=== PATIENT | female | born 1995 | race Two or more races ===

== ENCOUNTER 2016-12-08 19:56 | Emergency (ER) | payer MEDICAID ==
[~2016-12-08] VITALS: Ht 154.9 cm; Wt 71.7 kg
[2016-12-08 21:21] VITALS: BP 133/95
[2016-12-08] MEDS ORDERED: EPINEPHrine HCL 1 MG/1 ML AMP SC ONE (22:15)
[2016-12-08] MEDS ORDERED: methylPREDNISolone SOD SUCC 125 MG/2 ML VL IM ONE (22:15)
== END 2016-12-08 22:32 | disposition home or self-care (01) ==
LOC: ER 19:59
DX: T78.40XA Allergy, unspecified, initial encounter (principal); F12.10 Cannabis abuse, uncomplicated
CPT/HCPCS: 96372; 99284; J0171; J2930

== ENCOUNTER 2017-05-03 23:55 | Emergency (ER) | payer MEDICAID ==
[~2017-05-03] VITALS: Ht 154.9 cm; Wt 65.8 kg
[2017-05-04 00:51] VITALS: BP 108/67
== END 2017-05-04 05:22 | disposition left against medical advice (07) ==
LOC: ER 23:55
DX: R21 Rash and other nonspecific skin eruption (principal); Z53.21 Procedure and treatment not carried out due to patient leaving prior to being seen by health care provider

== ENCOUNTER 2017-05-04 15:03 | Emergency (ER) | payer MEDICAID, OTHER ==
[~2017-05-04] VITALS: Ht 154.9 cm; Wt 65.8 kg
[2017-05-04 15:13] VITALS: BP 131/64
== END 2017-05-04 17:07 | disposition home or self-care (01) ==
LOC: ER 15:08
DX: B86 Scabies (principal); F12.10 Cannabis abuse, uncomplicated

== ENCOUNTER 2019-12-24 17:21 | Emergency (ER) | payer OTHER ==
[~2019-12-24] VITALS: Ht 154.9 cm; Wt 76.7 kg
[2019-12-24 19:14] VITALS: BP 118/68
[2019-12-24 19:23] LABS: Urine WBC None Seen /hpf (0 - 5)
[2019-12-24 19:39] LABS: Basophils # (auto) 0 uL; Basophils % (auto) 0.4 % (0.0-2.0); Eosinophils # (auto) 0.2 uL; Eosinophils % (auto) 1.6 % (0.0-7.0); Hematocrit 42.8 % (36.0-46.0); Hemoglobin 14.6 g/dL (12.2-16.2); Lymphocytes # (auto) 3.1 uL; Mean Corpuscular Hemoglobin 31.4 pg (28.0-32.0); Mean Corpuscular Hgb Conc. 34.1 g/dL (32.0-36.0); Mean Corpuscular Volume 92.1 fL (80.0-100.0); Monocytes # (auto) 0.5 uL; Nucleated Red Blood Cells % 0.1 %; Platelet Count (auto) 292 10^3/uL (140-450); Red Blood Cells 4.65 10^6/uL (4.0-5.20); Red Cell Distribution Width 11.9 % (11.8-14.3); White Blood Cell 9.8 10^3/uL (4.4-10.8)
[2019-12-24 19:48] LABS: Urine Bacteria NONE SEEN /hpf (None Seen); Urine Blood Negative /uL (Negative); Urine Specific Gravity 1.004 (1.001-1.035)
[2019-12-24 20:57] LABS: Albumin 4.2 g/dL (3.4-5.0); Calcium 8.7 mg/dL (8.5-10.1); Potassium 3.6 mmol/L (3.5-5.1)
[2019-12-24 21:02] LABS: BUN/Creatinine Ratio 17.1; Bilirubin, Total 0.2 mg/dL (0.2-1.0); Total Protein 7.9 g/dL (6.4-8.2)
== END 2019-12-24 22:11 | disposition home or self-care (01) ==
LOC: ER 17:21
DX: N93.8 Other specified abnormal uterine and vaginal bleeding (principal); M54.9 Dorsalgia, unspecified
CPT/HCPCS: 36415; 76856; 80053; 81001; 84702; 85025

== ENCOUNTER 2021-03-09 10:10 | Observation (INO) | payer MEDICAID ==
[~2021-03-09] VITALS: Ht 154.9 cm; Wt 79.4 kg
[2021-03-09] MEDS ORDERED: LACTATED RINGER'S 1,000 ML IV ONE (11:30)
[2021-03-09] MEDS: TERBUTALINE SULFATE 1 MG/ML 1ML VIAL SC SCH ×2 (11:43→12:10)
[2021-03-09] MEDS ORDERED: PREN-96 PO (12:41)
[2021-03-09] MEDS ORDERED: ALBU0.084 PO (12:42)
[2021-03-09] MEDS ORDERED: NIF10C PO (12:57)
== END 2021-03-09 13:17 | disposition home or self-care (01) ==
LOC: LDRP 10:10
PROVIDERS: ADMIT Specialist; ATTEND Specialist
DX: O26.892 Other specified pregnancy related conditions, second trimester (principal); R10.31 Right lower quadrant pain; Z3A.25 25 weeks gestation of pregnancy
CPT/HCPCS: 59025; 81002; 87070; 94760; 96360; 96361; 96372; G0378; J3105

== ENCOUNTER 2021-03-26 07:53 | Observation (INO) | payer MEDICAID ==
[~2021-03-26] VITALS: Ht 154.9 cm; Wt 81.6 kg
[~2021-03-26 07:53] MED LIST: ALBU0.084 PO; NIF10C PO; PREN-96 PO
== END 2021-03-26 09:06 | disposition home or self-care (01) ==
LOC: LDRP 07:53
PROVIDERS: ADMIT Specialist; ATTEND Specialist
DX: O26.892 Other specified pregnancy related conditions, second trimester (principal); M79.604 Pain in right leg; Z3A.27 27 weeks gestation of pregnancy
CPT/HCPCS: 59025; 81002; G0378

== ENCOUNTER 2021-03-26 09:11 | Emergency (ER) | payer MEDICAID ==
[~2021-03-26] VITALS: Ht 154.9 cm; Wt 81.6 kg
[2021-03-26] MEDS ORDERED: ACETAMINOPHEN 500 MG TAB PO ONE (10:00)
[2021-03-26 11:07] VITALS: BP 118/70
== END 2021-03-26 11:36 | disposition home or self-care (01) ==
LOC: ER 09:11
DX: O26.892 Other specified pregnancy related conditions, second trimester (principal); M79.661 Pain in right lower leg; Z79.899 Other long term (current) drug therapy; Z3A.27 27 weeks gestation of pregnancy
CPT/HCPCS: 93971

== ENCOUNTER 2021-04-02 12:00 | Observation (INO) | payer MEDICAID | END 2021-04-02 13:10 | disposition home or self-care (01) | LOC: LDRP 12:00 | PROVIDERS: ADMIT Obstetrics & Gynecology; ATTEND Obstetrics & Gynecology | DX: O60.03 Preterm labor without delivery, third trimester (principal); Z3A.28 28 weeks gestation of pregnancy | CPT/HCPCS: 59025; 81002; G0378 ==

== ENCOUNTER 2021-04-09 11:45 | Observation (INO) | payer MEDICAID | END 2021-04-09 13:15 | disposition home or self-care (01) | LOC: LDRP 12:34 | PROVIDERS: ADMIT Specialist; ATTEND Specialist | DX: O60.03 Preterm labor without delivery, third trimester (principal); Z3A.29 29 weeks gestation of pregnancy | CPT/HCPCS: 59025; 81002; G0378 ==

== ENCOUNTER 2021-04-10 13:05 | Emergency (ER) | payer MEDICAID ==
[~2021-04-10] VITALS: Ht 154.9 cm; Wt 85.3 kg
[2021-04-10 13:10] VITALS: BP 127/80
[2021-04-10] MEDS ORDERED: IPRATROPIUM BROM 0.5 MG/2.5ML INH SOL NEB ONE (15:30)
[2021-04-10] MEDS ORDERED: cefTRIAXone SOD 1,000 MG VL IM ONE (15:30)
[2021-04-10] MEDS ORDERED: methylPREDNISolone SOD SUCC 125 MG/2 ML VL IM ONE ×2 (15:30→15:45)
[2021-04-10] MEDS ORDERED: ALBUTEROL SULF 2.5 MG/0.5ML(0.5%) NEB SOLN NEB ONE (15:30)
== END 2021-04-10 16:20 | disposition home or self-care (01) ==
LOC: ER 13:05
DX: O99.513 Diseases of the respiratory system complicating pregnancy, third trimester (principal); J45.909 Unspecified asthma, uncomplicated; J02.9 Acute pharyngitis, unspecified; F41.9 Anxiety disorder, unspecified; Z3A.30 30 weeks gestation of pregnancy
CPT/HCPCS: 94640; 96372; 99283; J0696; J2930; J7644

== ENCOUNTER 2021-04-16 09:24 | Observation (INO) | payer MEDICAID | END 2021-04-16 14:52 | disposition home or self-care (01) | LOC: LDRP 13:00 | PROVIDERS: ADMIT Obstetrics & Gynecology; ATTEND Obstetrics & Gynecology | DX: O60.03 Preterm labor without delivery, third trimester (principal); Z3A.30 30 weeks gestation of pregnancy | CPT/HCPCS: 59025; 81002; 94760; G0378 ==

== ENCOUNTER 2021-04-23 16:45 | Observation (INO) | payer MEDICAID | END 2021-04-23 17:30 | disposition home or self-care (01) | LOC: LDRP 16:45 | PROVIDERS: ADMIT Specialist; ATTEND Specialist | DX: O60.03 Preterm labor without delivery, third trimester (principal); O99.323 Drug use complicating pregnancy, third trimester; F12.90 Cannabis use, unspecified, uncomplicated; Z3A.31 31 weeks gestation of pregnancy | CPT/HCPCS: 59025; 81002; 94760; G0378 ==

== ENCOUNTER 2021-05-03 10:35 | Observation (INO) | payer MEDICAID | END 2021-05-03 11:20 | disposition home or self-care (01) | LOC: LDRP 10:35 | PROVIDERS: ADMIT Specialist; ATTEND Specialist | DX: O60.03 Preterm labor without delivery, third trimester (principal); O99.323 Drug use complicating pregnancy, third trimester; F12.90 Cannabis use, unspecified, uncomplicated; Z3A.33 33 weeks gestation of pregnancy | CPT/HCPCS: 59025; 81002; G0378 ==

== ENCOUNTER 2021-05-07 14:58 | Observation (INO) | payer MEDICAID ==
[2021-05-07] MEDS ORDERED: LACTATED RINGER'S 1,000 ML IV ONE (15:45)
== END 2021-05-07 17:03 | disposition home or self-care (01) ==
LOC: LDRP 14:58
PROVIDERS: ADMIT Obstetrics & Gynecology; ATTEND Obstetrics & Gynecology
DX: O26.893 Other specified pregnancy related conditions, third trimester (principal); R21 Rash and other nonspecific skin eruption; R10.30 Lower abdominal pain, unspecified; Z3A.33 33 weeks gestation of pregnancy
CPT/HCPCS: 59025; 81002; 96360; G0378

== ENCOUNTER 2021-05-12 07:22 | Observation (INO) | payer MEDICAID | END 2021-05-12 09:55 | disposition home or self-care (01) | LOC: LDRP 09:25 | PROVIDERS: ADMIT Specialist; ATTEND Specialist | DX: O60.03 Preterm labor without delivery, third trimester (principal); O99.323 Drug use complicating pregnancy, third trimester; F12.90 Cannabis use, unspecified, uncomplicated; Z3A.34 34 weeks gestation of pregnancy | CPT/HCPCS: 59025; 81002; G0378 ==

== ENCOUNTER 2021-05-19 09:25 | Observation (INO) | payer MEDICAID ==
[~2021-05-19] VITALS: Ht 154.9 cm; Wt 65.8 kg
[2021-05-19] MEDS ORDERED: LACTATED RINGER'S 1,000 ML IV ONE (10:00)
[2021-05-19] MEDS ORDERED: TERBUTALINE SULFATE 1 MG/ML 1ML VIAL SC SCH (10:00)
== END 2021-05-19 10:51 | disposition home or self-care (01) ==
LOC: LDRP 09:25
PROVIDERS: ADMIT Specialist; ATTEND Specialist
DX: O60.03 Preterm labor without delivery, third trimester (principal); O99.323 Drug use complicating pregnancy, third trimester; F12.90 Cannabis use, unspecified, uncomplicated; Z3A.35 35 weeks gestation of pregnancy
CPT/HCPCS: 59025; 81002; 96360; 96372; G0378; J3105

== ENCOUNTER 2021-05-26 10:15 | Observation (INO) | payer MEDICAID | END 2021-05-26 11:27 | disposition home or self-care (01) | LOC: LDRP 10:15 | PROVIDERS: ADMIT Specialist; ATTEND Specialist | DX: O60.03 Preterm labor without delivery, third trimester (principal); Z3A.36 36 weeks gestation of pregnancy | CPT/HCPCS: 59025; 81002; G0378 ==

== ENCOUNTER → 2021-06-01 | Outpatient (CLI) | payer MEDICAID ==
[2021-06-01 10:17] LABS: Basophils # (auto) 0 10 ^3/uL (0-0.2); Basophils % (auto) 0.4 % (0.0-2.0); Eosinophils # (auto) 0.1 10 ^3/uL (0-0.8); Hematocrit 35.3 % (36.0-46.0); Hemoglobin 12.4 g/dL (12.2-16.2); Lymphocytes # (auto) 1.6 10 ^3/uL (0.4-5.4); Lymphocytes % (auto) 18.2 % (10.0-50.0); Mean Corpuscular Hemoglobin 31.5 pg (28.0-32.0); Mean Corpuscular Hgb Conc. 35.2 g/dL (32.0-36.0); Mean Corpuscular Volume 89.6 fL (80.0-100.0); Monocytes # (auto) 0.4 10 ^3/uL (0-1.3); Monocytes % (auto) 4.5 % (0.0-12.0); Neutrophils # (auto) 6.9 10 ^3/uL (1.6-8.6); Neutrophils % (auto) 75.9 % (37.0-80.0); Red Blood Cells 3.94 10^6/uL (4.0-5.20); Red Cell Distribution Width 12.5 % (11.8-14.3)
[2021-06-02 07:06] LABS: RPR Non Reactive (Non Reactive)
== END | disposition home or self-care (01) ==
LOC: LAB 10:00
PROVIDERS: ATTEND Obstetrics & Gynecology
DX: Z34.83 Encounter for supervision of other normal pregnancy, third trimester (principal); Z3A.37 37 weeks gestation of pregnancy
CPT/HCPCS: 36415; 84112; 85025; 86592

== ENCOUNTER 2021-06-04 17:00 | Observation (INO) | payer MEDICAID | END 2021-06-04 18:35 | disposition home or self-care (01) | LOC: LDRP 17:00 | PROVIDERS: ADMIT Obstetrics & Gynecology; ATTEND Obstetrics & Gynecology | DX: O26.893 Other specified pregnancy related conditions, third trimester (principal); R10.31 Right lower quadrant pain; O36.8330 Maternal care for abnormalities of the fetal heart rate or rhythm, third trimester, not applicable or unspecified; O99.323 Drug use complicating pregnancy, third trimester; F12.90 Cannabis use, unspecified, uncomplicated; Z3A.37 37 weeks gestation of pregnancy; Z79.899 Other long term (current) drug therapy | CPT/HCPCS: 59025; 81002; G0378 ==

== ENCOUNTER 2021-06-18 12:55 | Inpatient (IN) | payer MEDICAID ==
[~2021-06-18] VITALS: Ht 1 cm; Wt 0.5 kg
[2021-06-18] MEDS ORDERED: WITCH HAZEL-GLYCERIN PAD TOP PRN (16:45)
[2021-06-18] MEDS ORDERED: LIDOCAINE 2%HCL (LOCAL ANESTH.) INJ 20ML MDV IJ PRN (16:45)
[2021-06-18] MEDS ORDERED: DERMOPLAST 60ML BOTTLE TOP PRN (16:45)
[2021-06-18] MEDS ORDERED: PHISODERM TOP SOLN 240ML BTL TOP PRN (16:45)
[2021-06-18] MEDS ORDERED: PROMETHAZINE HCL 25 MG/ML 1ML IV PRN (16:45)
[2021-06-18] MEDS ORDERED: miSOPROStol 50 MCG per PRE-CUT 1/2 TAB PO PRN (16:45)
[2021-06-18] MEDS ORDERED: BUTORPHANOL TARTRATE 2 MG/1 ML VIAL IV PRN ×2 (16:45)
[2021-06-18] MEDS: LACTATED RINGER'S 1,000 ML IV SCH (18:01)
[2021-06-18 18:59] LABS: Basophils # (auto) 0 10 ^3/uL (0-0.2); Basophils % (auto) 0.1 % (0.0-2.0); Eosinophils # (auto) 0.1 10 ^3/uL (0-0.8); Eosinophils % (auto) 0.9 % (0.0-7.0); Hematocrit 36.3 % (36.0-46.0); Hemoglobin 12.7 g/dL (12.2-16.2); Lymphocytes # (auto) 2.4 10 ^3/uL (0.4-5.4); Lymphocytes % (auto) 23.7 % (10.0-50.0); Mean Corpuscular Hgb Conc. 34.9 g/dL (32.0-36.0); Mean Corpuscular Volume 89.1 fL (80.0-100.0); Monocytes # (auto) 0.5 10 ^3/uL (0-1.3); Monocytes % (auto) 5.4 % (0.0-12.0); Neutrophils % (auto) 69.9 % (37.0-80.0); Red Blood Cells 4.08 10^6/uL (4.0-5.20); Red Cell Distribution Width 12.8 % (11.8-14.3)
[2021-06-18 19:21] LABS: Albumin 2.8 g/dL (3.4-5.0); Calcium 8.8 mg/dL (8.5-10.1); Potassium 3.6 mmol/L (3.5-5.1)
[2021-06-18 19:28] LABS: Bilirubin, Total 0.3 mg/dL (0.2-1.0); Total Protein 6.9 g/dL (6.4-8.2)
[2021-06-18] MEDS ORDERED: ceFAZolin 1GM/50ML 50 ML IV SCH (19:30)
[2021-06-18 20:13] LABS: INR 0.99 (0.9-1.15); Partial Thromboplastin Time 28.4 sec (23.6-33.0)
[2021-06-18] MEDS ORDERED: ceFAZolin 1GM/50ML 50 ML IV ONE (20:32)
[2021-06-18] MEDS: ceFAZolin 1GM/50ML 50 ML IV SCH (20:34)
[2021-06-18] MEDS ORDERED: D5W/LACTATED RINGERS 1,000 ML IV SCH (22:45)
[2021-06-19 00:05] LABS: Urine Bacteria NONE SEEN /hpf (None Seen); Urine Blood Negative /uL (Negative); Urine Mucus FEW (None Seen); Urine Specific Gravity 1.009 (1.001-1.035); Urine WBC 9 /hpf (0 - 5)
[2021-06-19 00:23] LABS: Amphetamine Screen, Urine NEGATIVE (NEGATIVE); Barbiturate Scree,Urine NEGATIVE (NEGATIVE); Benzodiazephine Screen, Urine NEGATIVE (NEGATIVE); Cannabinoid Screen, Urine NEGATIVE (NEGATIVE); Cocaine Screen, Urine NEGATIVE (NEGATIVE); Opiate Scree,Urine NEGATIVE (NEGATIVE); Phencyclidine Screen, Urine NEGATIVE (NEGATIVE)
[2021-06-19] MEDS: ceFAZolin 1GM/50ML 50 ML IV SCH (04:34)
[2021-06-19] MEDS ORDERED: LACT. RINGERS/OXYTOCIN 20UNITS 1,000 ML IV SCH ×2 (05:30→06:00)
[2021-06-19] MEDS ORDERED: LACT. RINGERS/OXYTOCIN 20UNITS 500 ML IV ONE ×2 (05:30→06:00)
[2021-06-19] MEDS ORDERED: TERBUTALINE SULFATE 1 MG/ML 1ML VIAL SC ONE (05:30)
[2021-06-19] MEDS: LACTATED RINGER'S 1,000 ML IV SCH (11:20)
[2021-06-19] MEDS ORDERED: ACETAMINOPHEN 325 MG TAB PO PRN (14:30)
[2021-06-19] MEDS: IBUPROFEN 600 MG TAB PO PRN (14:55)
[2021-06-19 18:46] VITALS: BP 126/61
[2021-06-19 23:18] VITALS: BP 108/61
[2021-06-20 03:20] VITALS: BP 117/71
[2021-06-20] MEDS: IBUPROFEN 600 MG TAB PO PRN ×2 (03:34→11:39)
[2021-06-20 06:06] LABS: RPR Non Reactive (Non Reactive)
[2021-06-20 07:30] VITALS: BP 109/65
[2021-06-20 11:25] VITALS: BP 112/73
[2021-06-20 15:25] VITALS: BP 110/69
== END 2021-06-20 16:02 | disposition home or self-care (01) | DRG 560 ==
LOC: LDRP 12:55 → OBSVTOIN 16:40 → LDRP 19:24
PROVIDERS: ADMIT Obstetrics & Gynecology; ATTEND Obstetrics & Gynecology
PROC: 10E0XZZ Delivery of Products of Conception, External Approach (ICD-10-PCS; principal; 2021-06-18)
DX: O80 Encounter for full-term uncomplicated delivery (principal); Z37.0 Single live birth; Z20.822 Contact with and (suspected) exposure to COVID-19; Z3A.39 39 weeks gestation of pregnancy
CPT/HCPCS: 36415; 59025; 59409; 76818; 80053; 80307; 81001; 82948; 82962; 84112; 85025; 85610; 85730; 86592; 86850; 86900; 86901; 87426; 94760; 96360; 96361; 96365; 96366; G0378; J0690; J2590